=== PATIENT | male | born 1965 | race Hispanic/Latino ===

== ENCOUNTER → 2018-02-02 | Day surgery (SDC) | payer OTHER ==
[~2018-02-02] MED LIST: CEFAZOLIN SOD 1 GM VIAL ONE; DEXAMETHASONE SOD PHOS INJ 4 MG/ML VIAL ONE; DEXILANT60 MG PO; FENTANYL CITRATE/PF 100MCG/2 ML INJ ONE; LIDOCAINE HCL 2% LOCAL INJ 5 ML SDV VIAL INJ ONE; LOSARTAN POTASS25 MG PO; MIDAZOLAM HCL 2 MG/2 ML VIAL ONE; ONDANSETRON HCL INJ 2 MG/ML VIAL ONE; PROPOFOL IV EMULSION 10 MG/ML 20 ML VIAL ONE; SEVOFLURANE INHAL SOLN 250 ML PEN BTL ONE
--- NOTE | 2018-02-02 15:39 | Operative Report ---
DATE OF PROCEDURE: February 02, 2018 SERVICE: Urology. PREOPERATIVE DIAGNOSES 1. Left nephrolithiasis. 2. Presence of double J stent. 3. Microhematuria. 4. Frequency. OPERATION PERFORMED: Extracorporal shockwave lithotripsy of left kidney stones. JANITOR: None. ANESTHESIA: General. CLINICAL INDICATION NOTE: A 52-year-old patient who has a blocking stone on the left side, was treated with double J stent. The stone is in the lower pole of the kidney. Patient was brought for lithotripsy. Procedure was discussed with the patient including benefits and complications. He is aware that this is just one step in managing the stone and he accepts it. DESCRIPTION OF PROCEDURE AND FINDINGS: After proper level of anesthesia was achieved, the patient was placed in supine position. Stone was brought for focus of treatment and treated with 2500 shocks. Initially, treatment was started at 60 per minute, gradually increased to 90 and then to 120. The stone disintegrated very well. Patient tolerated the procedure well, was transferred in satisfactory condition to recovery. He will be followed for next step of management in the office. Job#: [id number] SANJANA
== END | disposition home or self-care (01) ==
LOC: OR 06:03
PROVIDERS: ATTEND Urology
DX: N20.0 Calculus of kidney (principal); R31.29 Other microscopic hematuria; Z96.0 Presence of urogenital implants; I10 Essential (primary) hypertension; K21.9 Gastro-esophageal reflux disease without esophagitis
CPT/HCPCS: 50590; 93005; J0690; J1100; J2001; J2250; J2405

== ENCOUNTER → 2018-02-09 | Outpatient (CLI) | payer OTHER ==
[~2018-02-09] MED LIST changes: -CEFAZOLIN SOD 1 GM VIAL ONE; -DEXAMETHASONE SOD PHOS INJ 4 MG/ML VIAL ONE; -FENTANYL CITRATE/PF 100MCG/2 ML INJ ONE; -LIDOCAINE HCL 2% LOCAL INJ 5 ML SDV VIAL INJ ONE; -MIDAZOLAM HCL 2 MG/2 ML VIAL ONE; -ONDANSETRON HCL INJ 2 MG/ML VIAL ONE; -PROPOFOL IV EMULSION 10 MG/ML 20 ML VIAL ONE; -SEVOFLURANE INHAL SOLN 250 ML PEN BTL ONE
--- NOTE | 2018-02-09 17:34 | Diagnostic Imaging Report ---
PROCEDURE:X-RAY ABDOMEN - KUB COMPARISON:None. INDICATIONS:CALCULUS OF KIDNEY FINDINGS: Left double-J ureteral stent. No calcifications project along the course of the stent. Punctate calcific densities projected on the lower pole left renal shadow. There are no dilated loops of bowel to suggest obstruction. There are no masses or abnormal calcifications. There is no evidence of free air. No acute osseous abnormalities are present. CONCLUSION: 1. Left double-J ureteral stent. No calcifications project along the course of the stent. 2. Punctate left renal calculi. Anastasiya Wisdom M.D. Dictated by: Anastasiya Wisdom M.D. on 02/09/2018 at 17:39 Electronically approved by: Anastasiya Wisdom M.D. on 02/09/2018 at 17:39
== END ==
LOC: RAD 15:27
PROVIDERS: ATTEND Urology
DX: N20.0 Calculus of kidney (principal)
CPT/HCPCS: 74018

== ENCOUNTER → 2018-02-22 | Day surgery (SDC) | payer OTHER ==
[~2018-02-22] MED LIST changes: +DEXAMETHASONE SOD PHOS INJ 4 MG/ML VIAL IV ONE; +FENTANYL CITRATE/PF 100MCG/2 ML INJ ONE; +IOPAMIDOL 300MG/ML 50ML INFUS..BTL IV ONE; +LIDOCAINE HCL 2% LOCAL INJ 5 ML SDV VIAL INJ ONE; +MIDAZOLAM HCL 2 MG/2 ML VIAL ONE; +ONDANSETRON HCL INJ 2 MG/ML VIAL IV ONE; +PROPOFOL IV EMULSION 10 MG/ML 20 ML VIAL IV ONE; +SEVOFLURANE INHAL SOLN 250 ML PEN BTL INH ONE
--- NOTE | 2018-02-22 12:27 | Operative Report ---
DATE OF PROCEDURE: February 22, 2018 SERVICE: Urology. PREOPERATIVE DIAGNOSES 1. Left nephrolithiasis. 2. Left double-J stent. 3. Microhematuria. POSTOPERATIVE DIAGNOSES 1. Left nephrolithiasis. 2. Left double-J stent. 3. Microhematuria. OPERATIONS PERFORMED 1. Cystoscopy removal of double-J stent from the left side. 2. Left retrograde pyelogram, under fluoroscopic control. 3. Left ureteroscopy with Holmium laser fragmentation of stone. 4. Interpretation of x-ray, radiologist not present. 5. Supervision of fluoroscopy, radiologist not present. MEDICAL RECRUITER: None. ANESTHESIA: General. CLINICAL INDICATION NOTE: This is a 53-year-old patient with history of nephrolithiasis. He was brought for removal of stent and reassessment. If any stones were seen, they will be treated at the same time. Procedure was discussed with the patient. Potential benefits and complications discussed, explained and accepted. DESCRIPTION OF PROCEDURE AND FINDINGS: After the proper level of anesthesia was achieved, the patient was placed in lithotomy position, prepped and draped in sterile fashion. Urethra inspected, is unremarkable. The outlet is normal. Bladder mucosa is normal except for some edema around the left ureteral orifice from the stent. Stent was pulled out. Open-end catheter was inserted and retrograde pyelogram demonstrating minimal dilation of the upper collecting system. No stones seen along the ureter. Wire was kept in place and a flexible ureteroscopy was done. No stones were identified along the ureter. The renal pelvis in one of the calices, two small fragments of stone were identified and fragmented with a 200-micron fiber. It was elected not to place a double-J stent back. The ureteroscope was removed. The bladder was irrigated. Patient was transferred in satisfactory condition to recovery. Supervision of fluoroscopy as well as interpretation of x-ray was done by . Radiologist not present. Patient was given followup in the office in 3 weeks. Job#: [id number] USMAN
== END | disposition home or self-care (01) ==
LOC: OR 08:09
PROVIDERS: ATTEND Urology
DX: N20.0 Calculus of kidney (principal); Z46.6 Encounter for fitting and adjustment of urinary device; I10 Essential (primary) hypertension; K21.9 Gastro-esophageal reflux disease without esophagitis; K44.9 Diaphragmatic hernia without obstruction or gangrene
CPT/HCPCS: 52353; 74420; J1100; J2001; J2250; J2405; Q9967